=== PATIENT | female | born 1975 | race Two or more races ===

== ENCOUNTER 2020-08-26 13:21 | Emergency (ER) | payer OTHER ==
[~2020-08-26] VITALS: Ht 162.6 cm; Wt 113.4 kg
== END 2020-08-26 17:55 | disposition home or self-care (01) ==
LOC: ER 13:21
DX: R51.9 Headache, unspecified (principal); M54.2 Cervicalgia; F06.4 Anxiety disorder due to known physiological condition

== ENCOUNTER 2023-01-16 10:40 | Emergency (ER) | payer OTHER ==
[~2023-01-16] VITALS: Ht 162.6 cm; Wt 115.7 kg
== END 2023-01-16 14:21 | disposition home or self-care (01) ==
LOC: ER 10:40
DX: M17.10 Unilateral primary osteoarthritis, unspecified knee (principal)